=== PATIENT | male | born 1995 | race Caucasian/White ===

== ENCOUNTER 2025-06-24 09:36 | Outpatient (CLI) | payer OTHER, SELFPAY ==
--- OUTSIDE RECORDS SUMMARY | 2025-06-03 09:00 | XMS_ITS ---
Author Organization [facility] Address [address] [place] [address] Care Team Providers Care Dietitian Research Name Role Phone Lg Leung Primary Care Provider [phone] REASON FOR VISIT labs Social History Sex Assigned At : Social History Observation Description Sex Assigned At Male Encounters Encounter Location Date Provider Diagnosis [facility] [address] [place] [address] 06/03/2025 Lg Leung Plan Of Treatment Next Appt Details Provider Name:Chip Craig , 06/27/2025 11:20:00 AM, [address], [place], [address], Provider Name:Lg alva, 06/28/2025 08:40:00 AM, [address], [place], [address], Progress Notes * Darryl ROMANO RDOB:1995 ([age] yo M)Acc No.[id number]:06/03/2025 UNLOCKED PROGRESS NOTE Patient: Darryl KAT Provider: Ameena Leung DNP, PMHNP-BC :1995 A ge:30 Y S ex:Male Date:06/03/2025 Address:[address] [place], [place] [id number] Structured Data:Is there a n quang you would prefer we call you? (Nombre que prefmayela usar) : No Subjective: * Chief Complaints: * 1 . Labs. * Medical History: Objective: * Vitals: Assessment: Plan: * Treatment: * * Electronic signature of Lance Leung APRN, [id number] on 06/24/2025 at 09:45 AM SENIOR CREDIT ANALYST Sign off status: Pending * Provider: Ameena Leung DNP, PMHNP- Date: Generated for [place] braden/Hilary/Mellissasmitting on: 08/24/2024 09:45 AM SENIOR CREDIT ANALYST
--- OUTSIDE RECORDS SUMMARY | 2025-06-21 03:40 | XMS_ITS ---
Author Organization [facility] Address [address] [place] [address] Care Team Providers Care Military Personnel Specialist Name Role Phone Leung Lg Primary Care Provider Carito Johnson Unavailable [phone] REASON FOR VISIT CRU aT Social History Tobacco Use: Social History Observation Description Date Details (start date - stop date) Never Smoker NA - NA Sex Assigned At : Social History Observation Description Sex Assigned At Male PRAPARE Question Answer Notes Date Completed/Updated: 06/21/2025 What is your current housing situation? I have h ousing Are you worried about losing your housing? Yes What is the highest level of school that you have finished? 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 Check all that apply Food Has lack of transportation k ept you from medical appointments, meetings, work or from getting things needed for daily living? Yes, it has kept me from medical appointments or from getting my medications,Yes, it has kept me from non-medical meetings, appointments, work, or getting things needed for daily living How often do you see or talk to people that you care about and feel close to? (For example: talking to friends on the phone, visiting friends or family, going to mormonism or club meetings) 3 to 5 times a week How stressed are you? Stress is when someone feels tense, nervous, anxious, or can\t sleep at night because their mind is troubled Quite a bit In the past year have you sp ent more than 2 nights in a row in a group home, fdc, longterm center, or juvenile correctional facility? No Are you a refugee? I choose not to answer this q uestion What country are you from? I choose not to answe r this question Do you feel physically and e motionally safe where you currently live? Yes In the past year, have you b een afraid of your partner or ex-partner? No PRAPARE Score: 8 Enabling Services Provided? Yes Please specify Case Management Assessment First Visit Tobacco Control (Standard) Question Answer Notes Tobacco use: Nonsmoker Additional Findings: Tobacco non-user Ex-very he glo cigarette smoker (40+/day) Problems Problem Type SNOMED Code ICD Code Onset Dates Problem Status W/U Status Risk Notes Problem Mental health problem (201453397) Mental health problem (F48.9) Active confirmed Encounters Encounter Location Date Provider Diagnosis [facility] [address] [place] [address] 06/21/2025 Carito Johnson Over weight E66.3 and Mental health problem F48.9 Assessments Encounter Date Diagnosis (ICD Code) Assessment Notes Treatment Notes Treatment Clinical Notes Section Notes 06/21/2025 Over weight (ICD-10 - E66.3) 06/21/2025 Mental health problem (ICD-10 - F48.9) 06/21/2025 Other Clinician met w ith client to assess needs for residential services. Clinician gathered information regarding historical presentation of mental health and substance use symptoms including withdrawal, HIV Risk assessment, psychiatric hospitalization history and presenting concern. Clinician conducted PHQ9 and CSSRS assessments as well as social drivers of health screening for the purposes of identifying additional service needs. Plan Of Treatment Treatment Notes Assessment Notes Other Clinician met with clari de anda to assess needs for residential services. Clinician gathered information regarding historical presentation of mental health and substance use symptoms including withdrawal, HIV Risk assessment, psychiatric hospitalization history and presenting concern. Clinician conducted PHQ9 and CSSRS assessments as well as social drivers of health screening for the purposes of identifying additional service needs. Next Appt Details Follow Up: prn, Reason: Provider Name:Chip Craig , 06/27/2025 11:20:00 AM, [address], [place], [address], Provider Name:Lg Marsh , 06/28/2025 08:40:00 AM, [address] [place] [address], [place], [address], Progress Notes * Sony ROMANO RDOB:1995 ([age] yo M)Acc No.[id number]:06/21/2025 UNLOCKED PROGRESS NOTE Patient: Sony KAT Provider: Neisha Johnson :1995 A ge:30 Y S ex:Male Date:06/21/2025 Address:[facility] [address] [facility] Pcp:Lg Leung Structured Data:Is there a n quang you would prefer we call you? (Nombre que prefiere usar) : No Subjective: * Chief Complaints: * 1 . CRU aT. * HPI: P sychiatric Assessment - Current Symptoms: Primary concern today A dmitting today for MH Stabilization program. O [place] of Mental Health Symptoms C neetu reported he experiences depression and anxiety - increased symptoms of anxiety causes nausea in the morning, increase in depressive symptoms as well . H istory of Psychiatric Hospitalizations Clari de anda reported he has been hospitalized for mental health concerns twice, with the most recent being a few years ago. H istory of Psychiatric and Behavioral Health Treatment C neetu reported he does take medication and meet with a therapist for mental health services. S ubstance Use: Current Use Patterns C neetu reported he will smoke marajuana most days . P rimary Substance Used M arajuana. H istory of substance use C neetu reported he has been smoking marajuana since about age 20. H x of Withdrawal C neetu reported he sometimes experiences increase irritability as a symptom of withdrawal. A ssessment of Social Determinants of Health::: Has A PRAPARE Been Completed In The Past Year? H as a PRAPARE Been Completed In The Past Year? Y es, W as It Completed Today Using Alector? Y es.? a TBC For Substance Use Services: Who Is Your Primary Care Provider? D o You Have A Primary Care Provider? Y es [facility] . D o You Have A Psychiatric Provider? D o You Have A Psychiatric Provider? Y antonio Leung at [facility]. D o You Have Any Other Professional Supports? D o You Have Any Other Professional Supports Y antonio Bolanos through [facility] for therapy services. C onsent Forms Completed C onsent Forms N one Needed at this time. D epression Screening: PHQ-9 L ittle interest or pleasure in doing things M ore than half the days, F eeling down, depressed, or hopeless N early every day, T rouble falling or staying asleep, or sleeping too much M ore than half the days, F eeling tired or having little energy M ore than half the days, P oor appetite or overeating N early every day, F eeling bad about yourself or that you are a failure, or have let yourself or your family down N early every day, T rouble concentrating on things, such as reading the newspaper or watching television N early every day, M oving or speaking so slowly that other people could have noticed; or the opposite, being so fidgety or restless that you have been moving around a lot more than usual S everal days, T houghts that you would be better off or of hurting yourself in some way M ore than half the days (Consider Suicide Assessment Risk), T otal Score?21, I nterpretation S evere Depression. I ntervention D epression Screening Findings P ositive, F ollow-Up for Depression P mikayla is admitted to a [facility] residential unit where their mental health is monitored - unit nursing staff have access to this encounter note. S creening: [place] Suicide Severity Rating Scale (LF) D o you want to initiate with S creener form, 1 . Wish to be : Have you wished you were or wished you could go to sleep and not wake up? N o, 2 . Suicidal Thoughts: Have you actually had any thoughts of killing yourself? N o, 6 . Suicide Behavior Question: Have you ever done anything,started to do anything, or prepared to end your life? N o, I nterpretation: L ow Risk. * Medical History: * Social History: S ocial Determinants: P ANA Johns ate Completed/Updated: 08/21/2024, W hat is your current housing situation? I have housing, A re you worried about losing your housing? Y es, W hat is the highest level of school that you have finished? H igh school diploma or GED, W hat is your current work situation? F ull time work, I n the past year, have you or any family members you live with been unable to get any of the following when it was really needed? Check all that apply F ood, H as lack of transportation kept you from medical appointments, meetings, work or from getting things needed for daily living? Y es, it has kept me from medical appointments or from getting my medications,Yes, it has kept me from non-medical meetings, appointments, work, or getting things needed for daily living, H ow often do you see or talk to people that you care about and feel close to? (For example: talking to friends on the phone, visiting friends or family, going to mormonism or club meetings) 3 to 5 times a week, H ow stressed are you? Stress is when someone feels tense, nervous, anxious, or can\t sleep at night because their mind is troubled Q uite a bit, I n the past year have you spent more than 2 nights in a row in a group home, fdc, longterm center, or juvenile correctional facility? N o, A re you a refugee? I choose not to answer this question, W hat country are you from? I choose not to answer this question, D o you feel physically and emotionally safe where you currently live? Y es, I n the past year, have you been afraid of your partner or ex-partner? N o, P RAPARE Score: 8 , E nabling Services Provided? Y es, P leryan specify C ase Management Assessment First Visit.? T obacco Use: T obacco Control (Standard) T obacco use: N onsmoker, A dditional Findings: Tobacco non-user E x-very heavy cigarette smoker (40+/day). Objective: * Vitals: * Examination: M ental Status Exam: ATTENTION AND CONCENTRATION N o deficits. APPEARANCE A ppropriate. ATTITUDE AND BEHAVIOR C ooperative. EYE CONTACT G ood. AFFECT C ongruent with reported mood. MOOD E uthymic. INSIGHT F air. JUDGMENT G ood. Assessment: * Assessment: 1. O kinsey weight - E66.3 2 . M ental health problem - F48.9 Plan: * Treatment: * Procedure Codes: 9 0791 PSYCH DIAGNOSTIC EVALUATION, Modifiers: AJ , 3008F BODY MASS INDEX DOCD, CHS08 [facility] Service * Preventive Medicine: Counseling: C are goal follow-up plan: B IA management provided Y antonio, Jj lebron Normal BMI Follow-up L carlie education regarding diet. * Follow Up: p rn * * Electronic signature of Jamir Johnson on 06/24/2025 at 09:45 AM LITHOPONE CHARGER Sign off status: Pending * Provider: Neisha Johnson Date: 08/21/2024 Generated for [place] braden/Hilary/Arcadio on: 08/24/2024 09:45 AM LITHOPONE CHARGER History and Physical Notes * HPI (History of Present Illness) Category Sub-Category Detail Notes Category Not es Depression Screening PHQ-9 Little inte rest or pleasure in doing things: More than half the days Feeling down, depressed, or hopeless: Ne adam every day Trouble falling or staying a sleep, or sleeping too much: More than half the days Feeling tired or having little energy: M ore than half the days Poor appetite or overeating: Nearly ever y day Feeling bad about yourself o r that you are a failure, or have let yourself or your family down: Nearly every day Trouble concentrating on thi ngs, such as reading the newspaper or watching television: Nearly every day Moving or speaking so slowly that other people could have noticed; or the opposite, being so fidgety or restless that you have been moving around a lot more than usual: Several days Thoughts that you would be b jazlyn off or of hurting yourself in some way: More than half the days (Consider Suicide Assessment Risk) Total Score: 21 Interpretation: Severe Depression Intervention Depression Screening Findings: P ositive Follow-Up for Depression: Yariel arambula is admitted to a [facility] unit where their mental health is monitored - unit nursing staff have access to this encounter note Psychiatric Assessment - Current Symptoms Primary concern today Admitting today for MH Stabilization program Overview of Mental Health Symptoms Clien t reported he experiences depression and anxiety - increased symptoms of anxiety causes nausea in the morning, increase in depressive symptoms as well History of Psychiatric Hospitalizations Client reported he has been hospitalized for mental health concerns twice, with the most recent being a few years ago History of Psychiatric and B ehavioral Health Treatment Client reported he does take medication and meet with a therapist for mental health services Substance Use History of substance use Client reported he has been smoking marajuana since about age 20 Hx of Withdrawal Client reported he s ometimes experiences increase irritability as a symptom of withdrawal Primary Substance Used Marajuana Current Use Patterns Client reported he will smoke marajuana most days Screening [place] Suicide Sev erity Rating Scale (LF) Do you want to initiate with: Screener form 1. Wish to be : Have you wished you were or wished you could go to sleep and not wake up?: No 2. Suicidal Thoughts: Have you actually had any thoughts of killing yourself?: No 6. Suicide Behavior Question: Have you ever done anything,started to do anything, or prepared to end your life?: No Interpretation:: Low Risk Assessment of Social Determinants of Health:: Has A PRAPARE Been Completed In The Past Year? Has a PRAPARE Been Completed In The Past Year?: Yes Was It Completed Today Using SmartForm?: Yes [facility] Who Is Your Primary Care Provider? Do You Have A Primary Care Provider?: Yes Dr. Craig at [facility] Date of last physical exam: Do You Have A Psychiatric Provider? Do You Have A Psychiatric Provider?: Yes Lg Leung at [facility] Do You Have Any Other Professional Supports? Do You Have Any Other Professional Supports: Yes Luis Miguel strauss [facility] for therapy services Consent Forms Completed Consent Forms: N one Needed at this time Examination Category Sub-Category Detail Notes Category Not es Mental Status Exam ATTENTION AND CONCENTRATION No defi cits APPEARANCE Appropriate ATTITUDE AND BEHAVIOR Cooperative EYE CONTACT Good AFFECT Congruent with repor eneida mood MOOD Euthymic INSIGHT Fair JUDGMENT Good
--- NOTE | ~2025-06-24 | XR_ITS ---
EXAMINATION: [id number], 06/24/2025 9:45 FISH BAIT PICKER HISTORY: KNEE PAIN, RIGHT WT BEARING WORSENS DISCOMFORT COMPARISON: No comparisons available. Findings: No acute fracture or malalignment. No significant degenerative changes. Soft tissues unremarkable. Impression: No acute fracture or malalignment. Reviewed, dictated and finalized at location P. BAIT PICKER Impression: No acute fracture or malalignment.
--- OUTSIDE RECORDS SUMMARY | 2025-06-24 09:46 | XMS_ITS | Patient Health Record ---
Author Organization [facility] Address [address] [place] [address] Care Team Providers Care Technical Support 1 Software Engineer Name Role Phone Lg Leung Primary Care Provider [phone] Chip Craig Unavailable [phone] Grady Villanueva Unavailable [phone] Carito Johnson Unavailable [phone] Allergies No Known Allergies Results Component Value Reference Range Notes Breathalyzer Reviewed date:06/21/2025 03:30:30 PM Interpretation: Performing Lab: Notes/Report: VARINDER 0.000 QuantiFERON-TB Gold Plus (11 0848) (Not yet reviewed by provider) Interpretation: Performing Lab:[facility], [address] [place] [address], Phone - [phone], Director - Natalie Notes/Report: QuantiFERON Incubation Incubation performed. QuantiFERON-TB Gold Plus Negative Negative No response to M tuberculosis antigens detected. Infection with M tuberculosis is unlikely, but high risk individuals should be considered for additional testing (ATS/IDSA/CDC Clinical Practice Guidelines, 2017). The reference range is an Antigen minus Nil result of <0.35 IU/mL. Chemiluminescence immunoassay methodology QuantiFERON Criteria QuantiFERON-TB Gold Plus is a qualitative indirect test for M tuberculosis infection (including disease) and is intended for use in conjunction with risk assessment, radiography, and other medical and diagnostic evaluations. The QuantiFERON-TB Gold Plus result is determined by subtracting the Nil value from either TB antigen (Ag) value. The Mitogen tube serves as a control for the test. QuantiFERON TB1 Ag Value 0.03 QuantiFERON TB2 Ag Value 0.02 QuantiFERON Nil Value 0.02 QuantiFERON Mitogen Value >10.00 14 Panel Urine Drug Screen Reviewed date:06/21/2025 03:30:30 PM Interpretation: Performing Lab: Notes/Report: THC pos RAYRAY neg MOP (OPI) neg AMP neg MET neg BAR neg BZO pos MDMA neg MTD neg OXY neg PCP neg BUP neg TCA neg FTY neg Chlamydia trachomatis,Neisse jorge gonorrhoeae, and Trichomonas vaginalis, TEMO (264590) (Not yet reviewed by provider) Interpretation: Performing Lab:[facility], [address] [place] [address], Phone - [phone], Director - Natalie Notes/Report: Chlamydia by TEMO Negative Negative Gonococcus by TEMO Negative Negative Trich vag by TEMO Negative Negative Rapid Plasma Reagin (RPR) Te st With Reflex to Quantitative RPR and Confirmatory Treponema pallidum Antibodies (Not yet reviewed by provider) Interpretation: Performing Lab:[address], Phone - [phone], Director - Natalie Notes/Report: RPR Non Reactive Non Reactive HIV Screen *HIV 1, 2 Ab, p24 Ag (122452) (Not yet reviewed by provider) Interpretation: Performing Lab:[address], Phone - [phone], Director - Natalie Notes/Report: HIV Ab/p24 Ag Screen Non Reactive Non Reactive HIV-1/HIV-2 antibodies and HIV-1 p24 antigen were NOT detected. There is no laboratory evidence of HIV infection. HIV Negative [place] (Eskalith(R)), Serum Reviewed date:06/15/2025 01:43:41 PM Interpretation: Performing Lab:[facility], [address] [place] [address], Phone - [phone], Director - Nuvia Notes/Report: [place] (Eskalith(R)), Serum 0.5 0.5-1.2 mmol/L A concentration of 0.5-0.8 mmol/L is advised for long-term use; concentrations of up to 1.2 mmol/L may be necessary during acute treatment. Detection Limit = 0.1 <0.1 indicates None Detected Vitamin B12 and Folate Reviewed date:06/15/2025 01:43:41 PM Interpretation: Performing Lab:[address], Phone - [phone], Director - [facility] Notes/Report: Vitamin B12 581 319-8240 pg/mL Folate (Folic Acid), Serum 3.2 >3.0 ng/mL A serum folate concentration of less than 3.1 ng/mL is considered to represent clinical deficiency. Iron and TIBC* Reviewed date:06/15/2025 01:43:41 PM Interpretation: Performing Lab:[address], Phone - [phone], Director - [facility] Notes/Report: Iron Bind.Cap.(TIBC) 302 250-450 ug/dL UIBC 223 111-343 ug/dL Iron 79 38-169 ug/dL Iron Saturation 26 15-55 % TSH Rfx on Abnormal to Free T4 Reviewed date:06/15/2025 01:43:41 PM Interpretation: Performing Lab:[address], Phone - [phone], Director - [facility] Notes/Report: TSH 5.670 0.450-4.500 uIU/mL T4,Free (Direct) 0.89 0.82-1.77 ng/dL Hepatitis C Virus Antibody w /Rflx to Quantitative Real-time PCR ([id number]) Reviewed date:06/15/2025 01:43:41 PM Interpretation: Performing Lab:[address], Phone - [phone], Director - [facility] Notes/Report: HCV Ab Non Reactive Non Reactive Interpretation: Not infected with HCV unless early or acute infection is suspected (which may be delayed in an immunocompromised individual), or other evidence exists to indicate HCV infection. Hepatitis B Surface Antigen (HBsAg Screen) Reviewed date:06/15/2025 01:43:41 PM Interpretation: Performing Lab:[address], Phone - [phone], [facility] - [facility] Notes/Report: HBsAg Screen Negative Negative Rapid Plasma Reagin (RPR) Te st With Reflex to Quantitative RPR and Confirmatory Treponema pallidum Antibodies Reviewed date:06/15/2025 01:43:41 PM Interpretation: Performing Lab:[facility] [address] [place] [address], Phone - [phone], Director - [facility] Notes/Report: RPR Non Reactive Non Reactive HIV Screen *HIV 1, 2 Ab, p24 Ag (200212) Reviewed date:06/15/2025 01:43:41 PM Interpretation: Performing Lab:[facility] [address] [place] [address], Phone - [phone], Director - [facility] Notes/Report: HIV Ab/p24 Ag Screen Non Reactive Non Reactive HIV Negative HIV-1/HIV-2 antibodies and HIV-1 p24 antigen were NOT detected. There is no laboratory evidence of HIV infection. Lipid Panel* Reviewed date:06/15/2025 01:43:41 PM Interpretation: Performing Lab:[facility] [address] [place] [address], Phone - [phone], [facility] Notes/Report: Cholesterol, Total 185 100-199 mg/dL Triglycerides 78 0-149 mg/dL HDL Cholesterol 55 >39 mg/dL VLDL Cholesterol Ry 14 5-40 mg/dL LDL Chol Calc (NIH) 116 0-99 mg/dL Hemoglobin A1c* Reviewed date:06/15/2025 01:43:41 PM Interpretation: Performing Lab:[facility] [address] [place] [address], Phone - [phone], Director - [facility] Notes/Report: Hemoglobin A1c 5.2 4.8-5.6 % . Prediabetes: 5.7 - 6.4 Diabetes: >6.4 Glycemic control for adults with diabetes: <7.0 Chlamydia/Gonococcus/Mycopla sma genitalium, TEMO, Urine Reviewed date:06/15/2025 01:43:41 PM Interpretation: Performing Lab:[facility] [address] [place] [address], Phone - [phone], [facility] Notes/Report: Mycoplasma genitalium TEMO Negative Negative Chlamydia trachomatis, TEMO Negative Negative Neisseria gonorrhoeae, TEMO Negative Negative UA/M w/rflx Culture, Routine Reviewed date:06/15/2025 01:43:41 PM Interpretation: Performing Lab:[facility] [address] [place] [address], Phone - [phone], Director - [facility] Notes/Report: Specific [place] 1.020 1.005-1.030 pH 7.0 5.0-7.5 Urine-Color Yellow Yellow Appearance Clear Clear WBC Esterase Negative Negative Protein Negative Negative/Trace Glucose Negative Negative Ketones Negative Negative Occult Blood Negative Negative Bilirubin Negative Negative Urobilinogen,Semi-Qn 0.2 0.2-1.0 mg/dL Nitrite, Urine Negative Negative Microscopic Examination Micr oscopic follows if indicated. Microscopic Examination See below: Micr oscopic was indicated and was performed. Urinalysis Reflex This speci men will not reflex to a Urine Culture. WBC None seen 0 - 5 /hpf RBC 0-2 0 - 2 /hpf Epithelial Cells (non renal) None seen 0 - 10 /hpf Casts None seen None seen /lpf Bacteria None seen None seen/Few CMP 14 Comprehensive Metabol ic Panel* Reviewed date:06/15/2025 01:43:41 PM Interpretation: Performing Lab:[facility], [address] [facility]3], Phone - [phone], Director - Nuvia Notes/Report: Glucose 85 70-99 mg/dL BUN 12 6-20 mg/dL Creatinine 1.04 0.76-1.27 mg/dL eGFR 98 >59 mL/min/1.73 BUN/Creatinine Ratio 12 9-20 Sodium 142 134-144 mmol/L Potassium 4.1 3.5-5.2 mmol/L Chloride 105 96-106 mmol/L Carbon Dioxide, Total 23 20-29 mmol/L Calcium 9.1 8.7-10.2 mg/dL Protein, Total 6.4 6.0-8.5 g/dL Albumin 4.2 4.1-5.1 g/dL Globulin, Total 2.2 1.5-4.5 g/dL Bilirubin, Total 0.2 0.0-1.2 mg/dL Alkaline Phosphatase 81 47-123 IU/L AST (SGOT) 53 0-40 IU/L ALT (SGPT) 61 0-44 IU/L CBC With Differential/Platel et* Reviewed date:06/15/2025 01:43:41 PM Interpretation: Performing Lab:[facility], [address] [facility]3], Phone - [phone], Director - Nuvia Notes/Report: WBC 9.5 3.4-10.8 x10E3/uL RBC 4.58 4.14-5.80 x10E6/uL Hemoglobin 13.6 13.0-17.7 g/dL Hematocrit 41.5 37.5-51.0 % MCV 91 79-97 fL MCH 29.7 26.6-33.0 pg MCHC 32.8 31.5-35.7 g/dL RDW 12.8 11.6-15.4 % Platelets 248 150-450 x10E3/uL Neutrophils 59 Not Estab. % Lymphs 25 Not Estab. % Monocytes 8 Not Estab. % Eos 6 Not Estab. % Basos 1 Not Estab. % Neutrophils (Absolute) 5.7 1.4-7.0 x10E3/uL Lymphs (Absolute) 2.3 0.7-3.1 x10E3/uL Monocytes(Absolute) 0.8 0.1-0.9 x10E3/uL Eos (Absolute) 0.5 0.0-0.4 x10E3/uL Baso (Absolute) 0.1 0.0-0.2 x10E3/uL Immature Granulocytes 1 Not Estab. % Immature Grans (Abs) 0.1 0.0-0.1 x10E3/uL Reason For Referral Reason Evaluate for aminata fundoplication, [facility] preferred Diagnosis 1 Esophagitis (K20.90) Referral Organization [facility] Referring Provider First Name Chip Referring Provider Last Name Kiara Referring Provider Speciality Internal M edicine Referred Provider Specialty General Surg nuvia Referral Priority Routine Medications Medication SIG (Take, Route, Frequency, Duration) Notes Start Date End Date Status hydrOXYzine Pamoate 25 MG 1-2 capsules Orally every 4 hours as needed for anxiety, agitation, or inability to sleep. Do not give within 4 hours of diphenhydramine.; Duration: 30 days 06/21/2025 Active Pantoprazole Sodium 40 MG 1 tablet 1/2 to 1 hour before morning meal Orally twice a day 06/08/2025 Active Naproxen 375 MG 1 tablet with food or milk as needed Orally every 12 hrs; Duration: 30 days 06/24/2025 Active Melatonin 5 MG 1 tablet at bedtime as needed Orally Once a day; Duration: 30 days 06/21/2025 Active Losartan Potassium-HCTZ 100-25 MG 1 tablet Orally Once a day Active Caplyta 42 MG 1 capsule Orally Once a day 03/01/2025 Active Chlorhexidine Gluconate 0.12 % 15 mL swish for 30 seconds, then spit. Do not swallow. Mouth/Throat Twice a day; Duration: 30 day(s) 06/21/2025 Active Acetaminophen 500 MG two tablets as needed for pain (maximum of 6 tablets in 24 hours) Orally every 6 hrs 06/08/2025 Active Venlafaxine HCl ER 75 MG 1 capsule with food Orally Once a day 03/24/2025 Active buPROPion HCl ER (XL) 150 MG 1 tablet in the morning Oral Once a day Active Venlafaxine HCl ER 37.5 MG 1 capsule with food (take with 75 mg capsule for 112.5 mg daily total) Orally Once a day 05/23/2025 Active Benztropine Mesylate 0.5 MG 1 tablet at bedtime Orally Once a day; Duration: 30 days 05/23/2025 Active busPIRone HCl 15 MG 1 tablet Orally 3 times a day Active Multi Vitamin - 1 tablet Orally Once a day; Duration: 30 days 06/21/2025 Active Amoxicillin 500 MG 1 capsule Orally every 8 hrs 06/08/2025 Active diazePAM 5 MG 1/2 - 1 tablet as needed for panic attacks or severe anxiety Orally Up to twice a day; Duration: 14 days 05/30/2025 Active [place] Carbonate ER 300 MG 2 tablets at bedtime Orally Once a day Increasing from 300 mg to 600 mg nightly. Thanks. 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 Stress is when someone feels tense, nervous, anxious, or can\t sleep at night because their mind is troubled Quite a bit In the past year have you sp ent more than 2 nights in a row in a custodial, residential, nursing home center, or juvenile correctional facility? No Are [...] Problem Status W/U Status Risk Notes Problem Hypertension (83262066) Hypertension (I10) Active confirmed Problem Bipolar affective disorder (93479396) Bipolar affective disorder (F31.9) Active confirmed Problem Generalized anxiety disorder (03379576) VILMA (generalized anxiety disorder) (F41.1) Active confirmed Problem Overweight (914234999) Over weight (E66.3) Active confirmed Problem Mental health problem (986680656) Mental health problem (F48.9) Active confirmed Problem Physical examination, complete (14495584) Adult general medical examination (Z00.00) Active confirmed Problem Extrapyramidal movements (695386261) 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 Vital Signs Heart Rate 98 /min 06/24/2025 Temperature 97.9 degrees Fahrenheit 06/24/2025 Respiratory Rate 20 /min 06/24/2025 Oximetry 100 % 06/24/2025 Blood pressure diastolic 82 mm Hg 06/24/2025 Height 73 in 06/24/2025 Blood pressure systolic 128 mm Hg 06/24/2025 Weight 288.2 lbs 06/24/2025 BMI 38.02 kg/m2 06/24/2025 Encounters Encounter Location Date Provider Diagnosis [address] [place] [address] 05/23/2025 Lg Leung Bipolar affective disorder F31.9 ; VILMA (generalized anxiety disorder) F41.1 ; Extrapyramidal and movement disorder G25.9 ; Medication monitoring encounter Z51.81 and High risk heterosexual behavior Z72.51 [facility] [address] [place] [address] 06/21/2025 Carito Santanaan Over weight E66.3 an d Mental health problem F48.9 [facility] [place] [address] 06/24/2025 Grady Villanueva Over weight E66.3 an d Knee pain, right M25.[address] [place] [address] 03/01/2025 Lg Leung Bipolar affective disorder F31.9 and VILMA (generalized anxiety disorder) F41.[address] [place] [address] 03/24/2025 Lg Leung Bipolar affective disorder F31.9 ; VILMA (generalized anxiety disorder) F41.1 and Over weight E66.[address] [place] [address] 04/26/2025 Lg Leung Bipolar affective disorder F31.9 and VILMA (generalized anxiety disorder) F41.[address] [place] [address] 06/08/2025 Chip Craig Esophagitis K20.90 ; Urinary frequency R35.0 ; Hypertension I10 ; Over weight E66.3 ; Screening for diabetes mellitus Z13.1 ; Periodontal disease K05.6 ; Dental infection K04.7 ; Lipid screening Z13.220 ; Exposure to potential infection Z20.9 ; Fatigue R53.83 and Bipolar affective disorder F31.9 [facility] [address] [place] [address] 06/21/2025 Grady Villanueva Adult general medica l examination Z00.00 ; Hypertension I10 ; Over weight E66.3 ; Poor dental hygiene Z91.89 ; Unprotected sex Z72.51 and Knee pain, right M25.561 [facility] [address] [place] [address] 03/30/2025 Lg Leung Bipolar affective disorder F31.[address] [place] [address] 05/25/2025 Lg Leung [address] [place] [address] 05/30/2025 Lg Leung [address] [place] [address] 05/30/2025 Lg Leung Bipolar affective disorder F31.9 and VILMA (generalized anxiety disorder) F41.1 Assessments Encounter Date Diagnosis (ICD Code) Assessment Notes Treatment Notes Treatment Clinical Notes Section Notes 03/01/2025 Bipolar affective disorder (ICD-10 - F31.9) Client with long standing bipolar disorder and comorbid severe anxiety disorder. Has medical issues that are also playing a role in mental health (ED, peptic ulcer disease, migraines). Unclear if mental health is cause of medical issues or vice versa. Client states he has never had an effective treatment plan. Will start by weaning activating agent in half as amitriptyline is likely causing ED and weight gain and client is still having depression and insomnia (limited benefits). Client is agreeable to trial of Capltya in place of Vraylar for mood stabilization (did not tolerate dose increase in Vraylar in past). Caplyta choosen to limit metabolic risk burden. 03/01/2025 VILMA (generalized anxiety disorder) (ICD-10 - F41.1) Client with long standing bipolar disorder and comorbid severe anxiety disorder. Has medical issues that are also playing a role in mental health (ED, peptic ulcer disease, migraines). Unclear if mental health is cause of medical issues or vice versa. Client states he has never had an effective treatment plan. Will start by weaning activating agent in half as amitriptyline is likely causing ED and weight gain and client is still having depression and insomnia (limited benefits). Client is agreeable to trial of Capltya in place of Vraylar for mood stabilization (did not tolerate dose increase in Vraylar in past). Caplyta choosen to limit metabolic risk burden. 03/24/2025 Bipolar affective disorder (ICD-10 - F31.9) Client with long standing bipolar disorder and comorbid severe anxiety disorder. Has medical issues that are also playing a role in mental health (ED, peptic ulcer disease, migraines). Unclear if mental health is cause of medical issues or vice versa. Change to Caplyta from last appt has helped improve sleep and depression. Client is agreeable to weaning off amitriptyline completely and replacing with venlafaxine in the attempt for better control of anxiety, migraines with less side effect profile (hopeful ED will resolve). 03/30/2025 Bipolar affective disorder (ICD-10 - F31.9) 04/26/2025 Bipolar affective disorder (ICD-10 - F31.9) Client is agreeable to trial of low dose lithium using as augmentor for depression and to see if more stabilizing for mood. Discussed how to use lower dose amitriptyline to taper off very slowly due to client's intolerance due to withdrawal symptoms. 04/26/2025 VILMA (generalized anxiety disorder) (ICD-10 - F41.1) Client is agreeable to trial of low dose lithium using as augmentor for depression and to see if more stabilizing for mood. Discussed how to use lower dose amitriptyline to taper off very slowly due to client's intolerance due to withdrawal symptoms. 05/30/2025 Bipolar affective disorder (ICD-10 - F31.9) 05/30/2025 VILMA (generalized anxiety disorder) (ICD-10 - F41.1) 05/23/2025 Bipolar affective disorder (ICD-10 - F31.9) Client requests full lab work as has not had comprehensive lab work in a long time and is overdue. Needs lithium level and related labs. Is interested in STD testing as well. 05/23/2025 VILMA (generalized anxiety disorder) (ICD-10 - F41.1) Client requests full lab work as has not had comprehensive lab work in a long time and is overdue. Needs lithium level and related labs. Is interested in STD testing as well. 06/08/2025 Urinary frequency (ICD-10 - R35.0) Discussed avoiding acid, spicey, carbonated, coffee, caffeine, alcohol foods and drinks 06/08/2025 Esophagitis (ICD-10 - K20.90) Discussed antireflux diet, wt loss, no lying down for 3 hours after eating 06/21/2025 Hypertension (ICD-10 - I10) 06/21/2025 Adult general medical examination (ICD-10 - Z00.00) Admit to the Mental Health/Crisis Residential Unit and initiate standing/protocol orders: The following PRN medications may be self-administered by patients under the supervision of approved staff or administered by nursing staff: Ibuprofen 200mg, 2-4 tablets by mouth (with food) every 6 hours as needed for pain (unless on lithium). (NOTE: Ibuprofen and acetaminophen may be given together, but alternating is recommended for continuous pain relief. Guaifenesin 400 mg, 1 tablet by mouth every four hours as needed for cough and chest congestion (take with large glass of water). Loratadine 10 mg, 1 tablet by mouth daily as needed for allergies, watery itchy eyes, or sinus drainage. Throat Lozenges, up to 4 tablets by mouth every three to four hours as needed for sore throat. Antacid tablets, 1-2 tablets by mouth every one to two hours as needed for indigestion or heart burn. If the client prefers liquid, could use: Liquid Antacid : 1 ounce by mouth up to four times daily as needed for indigestion or heartburn Omeprazole 20mg, 1 capsule by mouth once daily for 14 days for frequent heartburn (frequent heartburn is more than 2 episodes per week). Do not exceed 14 days. Do not give to client already taking a proton-pump inhibitor: esomeprazole (Nexium), lansoprazole (Prevacid), pantoprazole (Protonix), rabeprazole (Aciphex), dexlansoprazole (Dexilant) Zofran ODT disintegrating (under the tongue) 4 mg, 1-2 tablets every 8 hours as needed for nausea/vomiting. Milk of Magnesia (MOM): 1 ounce (30 milliliters) by mouth every day as needed for constipation. OR Miralax: Stir and fully dissolve 17 grams (1 packet or 1 capful to measured line) in any 4 to 8 ounces of beverage then drink once daily for constipation. Do not use for more than 7 days. OR Docusate 100 mg, 1 capsule twice daily as needed for constipation Hydrocortisone 1% Cream, apply topically (to the skin) to the affected area up to three times daily as needed for itching or inflammation (avoid eyes and genitals). 2% Antifungal Cream, apply topically (to the skin) as directed as needed to affected areas for athlete's foot or jock itch. Triple Antibiotic Ointment, apply topically (to the skin) up to three times daily as needed for minor cuts and scrapes. Carmex or Chapstick, apply topically (to the skin) as needed for chapped lips and skin. Orajel, apply to affected areas as needed for mouth or tooth pain. Lubricating Eye Drops, instill 1-2 drops to the affected eye(s) as needed for dry/irritated eye(s). Hemorrhoid medications, apply to affected area according to directions as needed for hemorrhoid discomfort and itch. Nix (Permethrin 1%) cream 2 ounces, apply topically (to the skin) as directed as needed for head lice. Sunscreen 30 SPF, Apply to exposed skin prior to exposure to sun. The following PRN medications must be approved by nursing staff before self-administrati on by patients: Diphenhydramine 25 mg, 2 tablets by mouth every 4 hours as needed for allergic reaction or itchy rash. Caution: Do not use hydroxyzine within 4 hours of diphenhydramine and vice versa. Loperamide 2 mg capsules, may give two capsules by mouth for the initial dose, followed by one capsule up to 3 times a day as needed for diarrhea. Acetaminophen 500 mg, 1 - 2 tablets by mouth every six hours as needed for pain. (NOTE: Ibuprofen and acetaminophen may be given together, but alternating is recommended for continuous pain relief). Oxygen-May administer oxygen 2L/min via nasal cannula if O2 saturation is less than 92%, AND client complains of shortness of breath. Target O2 saturation is 94-98%. Caution: Remember too much oxygen can be detrimental to a client with COPD. Oxygen is a drug and should be delivered by trained staff only. Nurses may remove superficial splinters and sutures from skin lacerations. May apply gauze or bandages to any weeping wounds. Contact nursing if there is pus, a foul odor, increased pain/redness/swel ling, or if soaking through bandages. 06/21/2025 Over weight (ICD-10 - E66.3) 06/24/2025 Over weight (ICD-10 - E66.3) 06/24/2025 Knee pain, right (ICD-10 - M25.561) Educated patient on needing x-ray before any other scans can be done for insurance purposes. 06/21/2025 Mental health problem (ICD-10 - F48.9) 05/23/2025 Extrapyramidal and movement disorder (ICD-10 - G25.9) Client requests full lab work as has not had comprehensive lab work in a long time and is overdue. Needs lithium level and related labs. Is interested in STD testing as well. 06/21/2025 Over weight (ICD-10 - E66.3) 06/08/2025 Hypertension (ICD-10 - I10) 03/24/2025 VILMA (generalized anxiety disorder) (ICD-10 - F41.1) Client with long standing bipolar disorder and comorbid severe anxiety disorder. Has medical issues that are also playing a role in mental health (ED, peptic ulcer disease, migraines). Unclear if mental health is cause of medical issues or vice versa. Change to Caplyta from last appt has helped improve sleep and depression. Client is agreeable to weaning off amitriptyline completely and replacing with venlafaxine in the attempt for better control of anxiety, migraines with less side effect profile (hopeful ED will resolve). 03/24/2025 Over weight (ICD-10 - E66.3) Client with long standing bipolar disorder and comorbid severe anxiety disorder. Has medical issues that are also playing a role in mental health (ED, peptic ulcer disease, migraines). Unclear if mental health is cause of medical issues or vice versa. Change to Caplyta from last appt has helped improve sleep and depression. Client is agreeable to weaning off amitriptyline completely and replacing with venlafaxine in the attempt for better control of anxiety, migraines with less side effect profile (hopeful ED will resolve). 05/23/2025 Medication monitoring encounter (ICD-10 - Z51.81) Client requests full lab work as has not had comprehensive lab work in a long time and is overdue. Needs lithium level and related labs. Is interested in STD testing as well. 06/08/2025 Over weight (ICD-10 - E66.3) 06/21/2025 Poor dental hygiene (ICD-10 - Z91.89) 06/21/2025 Unprotected sex (ICD-10 - Z72.51) 06/08/2025 Screening for diabetes mellitus (ICD-10 - Z13.1) 06/08/2025 Periodontal disease (ICD-10 - K05.6) 06/21/2025 Knee pain, right (ICD-10 - M25.561) 05/23/2025 High risk heterosexual behavior (ICD-10 - Z72.51) Client requests full lab work as has not had comprehensive lab work in a long time and is overdue. Needs lithium level and related labs. Is interested in STD testing as well. 06/08/2025 Dental infection (ICD-10 - K04.7) 06/08/2025 Lipid screening (ICD-10 - Z13.220) 06/08/2025 Exposure to potential infection (ICD-10 - Z20.9) 06/08/2025 Fatigue (ICD-10 - R53.83) 06/08/2025 Bipolar affective disorder (ICD-10 - F31.9) 06/21/2025 Other Clinician met with client to assess needs for residential services. Clinician gathered information regarding historical presentation of mental health and substance use symptoms including withdrawal, HIV Risk assessment, psychiatric hospitalization history and presenting concern. Clinician conducted PHQ9 and CSSRS assessments as well as social drivers of health screening for the purposes of identifying additional service needs. 03/01/2025 Other Discussed sleep hygiene and caffeine intake with encouragement to limit electronic devices an hour before bed and to limit caffeine after 3:00pm. Exercise benefits for mood and health discussed. Psychoeducation regarding psychiatric illness provided. Client was educated about risks and benefits of medication, alternatives to medication, off label uses of medication, suicidal ideation with SSRIs, self-administrati on and compliance with medication along with how to safely store medication. Verbal informed consent obtained. Client agrees to return sooner if symptoms worsen or if suicidal or homicidal ideations occur. Client has the phone number to the 24-hour crisis line at [facility]. Questions addressed. Client verbalized understanding of all information and is agreeable to treatment plan. Client with long standing bipolar disorder and comorbid severe anxiety disorder. Has medical issues that are also playing a role in mental health (ED, peptic ulcer disease, migraines). Unclear if mental health is cause of medical issues or vice versa. Client states he has never had an effective treatment plan. Will start by weaning activating agent in half as amitriptyline is likely causing ED and weight gain and client is still having depression and insomnia (limited benefits). Client is agreeable to trial of Capltya in place of Vraylar for mood stabilization (did not tolerate dose increase in Vraylar in past). Caplyta choosen to limit metabolic risk burden. 03/24/2025 Other Discussed sleep hygiene and caffeine intake with encouragement to limit electronic devices an hour before bed and to limit caffeine after 3:00pm. Exercise benefits for mood and health discussed. Psychoeducation regarding psychiatric illness provided. Client was educated about risks and benefits of medication, alternatives to medication, off label uses of medication, suicidal ideation with SSRIs, self-administrati on and compliance with medication along with how to safely store medication. Verbal informed consent obtained. Client agrees to return sooner if symptoms worsen or if suicidal or homicidal ideations occur. Client has the phone number to the 24-hour crisis line at [facility]. Questions addressed. Client verbalized understanding of all information and is agreeable to treatment plan. Client with long standing bipolar disorder and comorbid severe anxiety disorder. Has medical issues that are also playing a role in mental health (ED, peptic ulcer disease, migraines). Unclear if mental health is cause of medical issues or vice versa. Change to Caplyta from last appt has helped improve sleep and depression. Client is agreeable to weaning off amitriptyline completely and replacing with venlafaxine in the attempt for better control of anxiety, migraines with less side effect profile (hopeful ED will resolve). 04/26/2025 Other Discussed sleep hygiene and caffeine intake with encouragement to limit electronic devices an hour before bed and to limit caffeine after 3:00pm. Exercise benefits for mood and health discussed. Psychoeducation regarding psychiatric illness provided. Client was educated about risks and benefits of medication, alternatives to medication, off label uses of medication, suicidal ideation with SSRIs, self-administrati on and compliance with medication along with how to safely store medication. Verbal informed consent obtained. Client agrees to return sooner if symptoms worsen or if suicidal or homicidal ideations occur. Client has the phone number to the 24-hour crisis line at [facility]. Questions addressed. Client verbalized understanding of all information and is agreeable to treatment plan. Client is agreeable to trial of low dose lithium using as augmentor for depression and to see if more stabilizing for mood. Discussed how to use lower dose amitriptyline to taper off very slowly due to client's intolerance due to withdrawal symptoms. 06/21/2025 Other Continue treatment as recommended by [facility] staff. Encouraged patient to obtain routine medical care with patient's own primary care provider or establish as a patient at [facility] if no current primary care provider. Plan Of Treatment Future Test Test Name Order Date Xray : Knee, right 2 views 06/21/2025 HIV Screen *HIV 1, 2 Ab, p24 Ag ([id number]) 06/21/2025 Chlamydia trachomatis,Neisse jorge gonorrhoeae, and Trichomonas vaginalis, TEMO ([id number]) 06/21/2025 QuantiFERON-TB Gold Plus ([id number]) 2024 Rapid Plasma Reagin (RPR) Te st With Reflex to Quantitative RPR and Confirmatory Treponema pallidum Antibodies 06/21/2025 Next Appt Details Provider Name:Chip Craig , 06/27/2025 11:20:00 AM, [address], [place], [address], Provider Name:Lg alva, 06/28/2025 08:40:00 AM, [address], [place], [address], Insurance Providers Payer Name Payer Address Payer Phone Subscriber Number Group Number Insured Name Patient Relationship to Insured Coverage Start Date Coverage End Date [facility] [employer] [facility] Attn Claims Department [address] [place] [address] [phone] [id number] Darryl Talavera Self - patient is the insured [facility] [facility] Attn Claims Department [address] [place] [address] [phone] [id number] Day, Darryl Self - patient is the insured 5 Medical (General) History Medical History History ICD Code hypertension Surgical History Surgery Date(Month/Year) pins put in Left knee
--- OUTSIDE RECORDS SUMMARY | 2025-06-24 09:46 | XMS_ITS | Clinical Summary ---
Author Organization [facility] Address [address] [place] [address] Care Team Providers Care Waiter/Waitress Counter Name Role Phone Mireya Keene INFORMATION TECHNOLOGY ADMINISTRATOR-UNION ORGANISER Primary Care Provide r Source Comments [facility],non-owned Affiliates and Associated Physician Practices is amultiple site organization consisting of ambulatory clinics and hospital sitesin [place], [place], [place] and [place]. This disclosure is being madepursuant to the Care Everywhere program and may not contain all information available regarding this patient. Last updated 18.[facility] Allergies No known active allergies Medications * This document contains information received from the source organization and may not represent a complete record from that organization. * Be aware that medications may not be up to date on this document. Alwaysverify current medications with the patient. omeprazole (PRILOSEC) 20 MG capsuleIndicati ons:Gastroesoph ageal Reflux Disease Take 20 mg by mouth at bedtime Active losartan (COZAAR) 50 MG tabletIndicatio ns:Hypertension Take 1 (one) tablet by mouth once daily Reasons: High Blood Pressure Disorder 30 tablet 2 Active ARIPiprazole (ABILIFY) 2 MG tabletIndicatio ns:Major Depressive Disorder Take 1 (one) tablet by mouth once daily Reasons: Major Depressive Disorder 30 tablet 1 2 Active Active Problems Problem Noted Date Diagnosed Date Dysthymia 12/29/2021 Intentional overdose of olga lidia ctive serotonin reuptake inhibitor (SSRI) 12/29/2021 R/O Personality disorder 12/29/2021 Current severe episode of ma neyda depressive disorder without psychotic features, unspecified whether recurrent 12/28/2021 Family History Medical History Relation Name Comments CAD (Coronary Artery Disease) Father Hypertension Father CAD (Coronary Artery Disease) Mother Hypertension Mother Relation Name Status Comments Father Mother Social History Tobacco Use Types Packs/Day Years Used Date Smoking Tobacco: Never Smokeless Tobacco: Never Tobacco Cessation:Counseling Given: Yes Alcohol Use Standard Drinks/Week Comments Not Currently 0 (1 standard drink = 0.6 oz pur e alcohol) Pt reports no alcohol AUDIT-C Answer Date Recorded Q1: How often do you have a drink containing alcohol? Never 12/29/2021 Q2: How many drinks containi ng alcohol do you have on a typical day when you are drinking? Patient does not drink Q3: How often do you have si x or more drinks on one occasion? Never 12/29/2021 Sex and Gender Information Value Date Recorded Sex Assigned at Not on file Legal Sex Male 9:02 AM CDT Gender Identity Not on file Sexual Orientation Not on file Last Filed Vital Signs Vital Sign Reading Time Taken Comments Blood Pressure 137/93 01/01/2022 7:30 AM CDT Pulse 82 01/01/2022 7:30 AM CDT Temperature 37 C (98.6 F) 01/01/2022 7:30 AM CDT Respiratory Rate 16 01/01/2022 7:30 AM CDT Oxygen Saturation 99% 01/01/2022 7:30 AM CDT Inhaled Oxygen Concentration - - Weight 122.5 kg (270 lb) 12/29/2021 12:05 AM CDT Height 154.9 cm (5' 1) 12/29/2021 12:05 AM CDT Body Mass Index 51.02 12/29/2021 12:05 AM CDT Plan of Treatment Health Maintenance Due Date Last Done Comments HIV SCREENING 2009 HEPATITIS C SCREENING 04/06/2012 DTAP/TDAP/TD VACCINES (1 - Tdap) 2013 HEPATITIS B VACCINE (1 of 3 - 19+ 3-dose series) 2013 HPV VACCINE (1 - 3-dose SCDM series) 2021 DEPRESSION SCREENING 08/04/2024 COVID-19 VACCINE (1 - 2024-2 6 season) 2025 INFLUENZA VACCINE (#1) 2025 ZOSTER VACCINE (1 of 2) 2044 HIB VACCINE Aged Out No longer eligi ble based on patient's age to complete this topic MENINGOCOCCAL (Group B) VACC INE SHARED DECISION-MAKING Aged Out No longer eligibl e based on patient's age to complete this topic MENINGOCOCCAL GROUPS A/C/Y/W VACCINE Aged Out No longer eligible b ased on patient's age to complete this topic PNEUMOCOCCAL VACCINE Aged Out No long er eligible based on patient's age to complete this topic Insurance [place] Advance Directives * Full Code (Latest Code Status on File) Date Activated Date Inactivated Comments 12/28/2021 11:49 PM 01/01/2022 2:07 PM Care Teams Waiter/Waitress Counter Relationship Specialty Start Date End Date Mireya Keene APRN-CNP [address] [place] [address] PCP - General Nurse Practitioner 12/02/21
--- OUTSIDE RECORDS SUMMARY | 2025-06-24 09:46 | XMS_ITS | Clinical Summary ---
Author Organization [facility] Address [address] [place] [address] Phone Care Team Providers Care Room Designer Name Role Phone Provider, None Primary Care Provider Unavailabl e Allergies No known active allergies Medications Topiramate 50 MG Tablet Take 50 mg by mouth 2 times daily. Active Active Problems Problem Noted Date Diagnosed Date Suicidal behavior with attempted self-injury 02/2021 Episode of recurrent major depressive disorder 0 02/07/2021 Hx of migraine headaches 02/07/2021 Obesity (BMI 30.0-34.9) 02/07/2021 Family History Medical History Relation Name Comments High Cholesterol Father Diabetes Mother High Cholesterol Mother Relation Name Status Comments Father Alive Mother Alive Social History Tobacco Use Types Packs/Day Years Used Date Smoking Tobacco: Never Smokeless Tobacco: Never Alcohol Use Standard Drinks/Week Comments Not Currently 0 (1 standard drink = 0.6 oz pur e alcohol) Sex and Gender Information Value Date Recorded Sex Assigned at Not on file Legal Sex Male 8:40 PM CDT Gender Identity Not on file Sexual Orientation Not on file Last Filed Vital Signs Vital Sign Reading Time Taken Comments Blood Pressure 133/72 02/07/2021 1:47 PM CDT Pulse 77 02/07/2021 1:47 PM CDT Temperature 36.7 C (98.1 F) 02/07/2021 1:47 PM CDT Respiratory Rate 26 02/07/2021 1:47 PM CDT Oxygen Saturation 99% 02/07/2021 1:47 PM CDT Inhaled Oxygen Concentration - - Weight 111.8 kg (246 lb 8 oz) 02/07/2021 5:15 AM CDT Height 180.3 cm (5' 11) 02/07/2021 5:15 AM CDT Body Mass Index 34.38 02/07/2021 5:15 AM CDT Plan of Treatment Not on file Advance Directives * Full Code (Latest Code Status on File) Date Activated Date Inactivated Comments 02/07/2021 3:53 AM 02/07/2021 11:49 PM CPR-Full Emy tment: FULL ARREST: Attempt Resuscitation/CPR wit intubation and mechanical ventilation. PRE-ARREST: Use entire range of life support measures to stabilize the patient. Care Teams Room Designer Relationship Specialty Start Date End Date Provider, None [place] PCP - General 02/07/21
== END 2025-06-24 09:37 | disposition home or self-care (01) ==
PROVIDERS: Visit Provider Registered Nurse
DX: M25.561 Pain in right knee (principal)
CPT/HCPCS: 73560

== ENCOUNTER 2025-07-13 14:32 | Outpatient (CLI) | payer OTHER, SELFPAY ==
--- OUTSIDE RECORDS SUMMARY | 2025-06-03 15:00 | XMS_ITS ---
Author Organization [facility] Address [address] [place] [address] Phone [phone] Care Team Providers Care Motor And Generator Assembler Name Role Phone Lg Leung APRN Primary Care Provider REASON FOR VISIT labs Social History Sex Observation Social History Observation Description Sex Observation Male Sexual Orientation Social History Observation Description Sexual Orientation Bisexual Gender Identity Social History Observation Description Gender Identity Male Encounters Date Time Type Facility Location Provider Diagnosis 06/03/2025 03:00 PM Office Visit [address] [place] [address] Lg Leung Plan Of Treatment No Information Medical (General) History Medical History History ICD Code hypertension Surgical History Surgery Date(Month/Year) pins put in Left knee Progress Notes * Darryl ROMANO RDOB:1995 ([age] yo M)Acc No.[id number]:06/03/2025 UNLOCKED PROGRESS NOTE Patient: Nat RYAN Darryl Li Provider: Ameena Leung DNP, PMHNP- :1995 A ge:30 Y S ex:Male Date:06/03/2025 Address:[address] [place], [place] [id number] Subjective: * Chief Complaints: * 1 . Labs. * Screening: * * Medical History: Objective: * Vitals: Assessment: Plan: * Treatment: * * Electronic signature of Lance Leung , SOFTWARE TOOLS DEVELOPER, [id number] on 07/13/2025 at 07:20 PM RESOURCE MANAGEMENT SPECIALIST Sign off status: Pending * Provider: Ameena Leung DNP, PMHNP- Date: 1 Generated for [place] braden/Hilary/Arcadio on: 09/13/2024 07:20 PM RESOURCE MANAGEMENT SPECIALIST
--- NOTE | ~2025-07-13 | MR_ITS ---
EXAMINATION: MR knee RT wo con DATE: 07/13/2025 15:21 INDICATION: Pain and swelling TECHNIQUE: Magnetic resonance imaging (MRI) of the knee was performed without intravenous contrast. Sequences included axial PD-weighted FS FSE, coronal PD- weighted FSE and PD-weighted FS FSE, sagittal PD-weighted FSE, and sagittal T2- weighted FS FSE. COMPARISON: X-rays from June 24 FINDINGS: No fracture subluxation or dislocation. Chondral articulating margins appear intact. Small joint effusion present. Mildly complex tear involving the posterior horn of the lateral meniscus extending to the inferior surface and horizontally into the white zone. There is also mild edematous appearing changes in the subjacent margin of the medial tibial plateau. Moderately extensive edematous changes present in the deep portion of the medial head of the gastrocnemius muscle with edematous changes extending caudally to the lower most portion of the field of view. No discrete tear seen. The joint capsule in this location appears slightly thickened and irregular; there also may be mild meniscocapsular separation as seen on images 14 through 18 of series 5. The anterior horn of the medial meniscus appears intact. The lateral meniscus appears intact. Cruciate and collateral ligaments appear intact. The quadriceps and infrapatellar tendons appear normal. IMPRESSION: Somewhat complex appearing tear involving the posterior horn of the medial meniscus with possible meniscocapsular separation and injury to the joint capsule in this area; mild contusion to the medial tibial plateau also present. Moderately extensive strain or injury involving the medial head of the gastrocnemius, although no discrete tear is seen. Reviewed, dictated and finalized at location A. OPERATIVE NURSE IMPRESSION: Somewhat complex appearing tear involving the posterior horn of th e medial meniscus with possible meniscocapsular separation and injury to the josef int capsule in this area; mild contusion to the medial tibial plateau also pres ent. Moderately extensive strain or injury involving the medial head of the gas trocnemius, although no discrete tear is seen.
--- OUTSIDE RECORDS SUMMARY | 2025-07-13 19:21 | XMS_ITS | Clinical Summary ---
Author Organization [facility] Address [address] [place] [address] Phone Care Team Providers Care Complaint Analyst Name Role Phone Provider, None Primary Care [...] measures to stabilize the patient. Care Teams Complaint Analyst Relationship Specialty Start Date End Date Provider, None [place] PCP - General 02/07/21
--- OUTSIDE RECORDS SUMMARY | 2025-07-13 19:21 | XMS_ITS | Clinical Summary ---
Author Organization [facility] Address [address] [place] [address] Care Team Providers Care Senior Python Developer Name Role Phone Mireya Keene TALENT ACQUISITION RELATIONSHIP MANAGER-ROTARY SHEAR WORKER HELPER Primary Care Provide r Source Comments [facility],non-owned Affiliates and Associated Physician Practices is amultiple site organization consisting of ambulatory clinics and hospital sitesin [place], [place], [place] and [place]. This disclosure is being madepursuant to the Care Everywhere program and may not contain all information available regarding this patient. Last updated 18.[facility] Allergies No known active allergies Medications * [...] 11:49 PM 01/01/2022 2:07 PM Care Teams Senior Python Developer Relationship Specialty Start Date End Date Mireya Keene APRN-CNP [address] [place] [address] PCP - General Nurse Practitioner 12/02/21
--- OUTSIDE RECORDS SUMMARY | 2025-07-13 19:21 | XMS_ITS | Patient Health Record ---
Author Organization [facility] Address [address] [place] [address] Phone [phone] Care Team Providers Care Tier Over Name Role Phone Lg Leung APRN Primary Care Provider [phone] Chip Craig Unavailable [phone] Grady Villanueva Unavailable [phone] Carito Johnson Unavailable [phone] Allergies No Known Allergies Results Component Value Reference Range Flag Notes 14 Panel Urine Drug Screen Order date: 06/21/2025 Reviewed date:06/21/2025 03:30:30 PM Interpretation: Performing Lab: Notes/Report: THC pos RAYRAY neg MOP (OPI) neg AMP neg MET neg BAR neg BZO pos MDMA neg MTD neg OXY neg PCP neg BUP neg TCA neg FTY neg Chlamydia trachomatis,Neisse jorge gonorrhoeae, and Trichomonas vaginalis, TEMO ([id number]) Order date: 06/21/2025 Reviewed date:06/27/2025 08:05:42 AM Interpretation: Performing Lab:[facility], [address] [place] [address] [facility], Phone - [phone], Director - Natalie Notes/Report: Chlamydia by TEMO Negative Negative Gonococcus by TEMO Negative Negative Trich vag by TEMO Negative Negative Rapid Plasma Reagin (RPR) Te st With Reflex to Quantitative RPR and Confirmatory Treponema pallidum Antibodies Order date: 06/21/2025 Reviewed date:06/27/2025 08:05:42 AM Interpretation: Performing Lab:[facility] [place], Phone - [phone], Director - Natalie Notes/Report: RPR Non Reactive Non Reactive HIV Screen *HIV 1, 2 Ab, p24 Ag ([id number]) Order date: 06/21/2025 Reviewed date:06/27/2025 08:05:42 AM Interpretation: Performing Lab:[facility] [place], Phone - [phone], Director - Natalie Notes/Report: HIV Ab/p24 Ag Screen Non Reactive Non Reactive HIV-1/HIV-2 antibodies and HIV-1 p24 antigen were NOT detected. There is no laboratory evidence of HIV infection. HIV Negative QuantiFERON-TB Gold Plus ([id number]) Order date: 06/21/2025 Reviewed date:06/27/2025 08:05:42 AM Interpretation: Performing Lab:[facility] [place], Phone - [phone], Director - Natalie Notes/Report: QuantiFERON Incubation Incubation [...] Nil Value 0.02 QuantiFERON Mitogen Value >10.00 Breathalyzer Order date: 06/21/2025 Reviewed date:06/21/2025 03:30:30 PM Interpretation: Performing Lab: Notes/Report: VARINDER 0.000 Jugtown (Eskalith(R)), Serum Order date: 06/08/2025 Reviewed date:06/15/2025 01:43:41 PM Interpretation: Performing Lab:[address], Phone - [phone], Director - [facility] Notes/Report: Jugtown (Eskalith(R)), Serum 0.5 0.5-1.2 mmol/L A concentration of 0.5-0.8 mmol/L is advised for long-term use; concentrations of up to 1.2 mmol/L may be necessary during acute treatment. Detection Limit = 0.1 <0.1 indicates None Detected Vitamin B12 and Folate Order date: 06/08/2025 Reviewed date:06/15/2025 01:43:41 PM Interpretation: Performing Lab:[address], Phone - [phone], Director - [facility] Notes/Report: Vitamin B12 380 418-6368 pg/mL Folate (Folic Acid), Serum 3.2 >3.0 ng/mL A serum folate concentration of less than 3.1 ng/mL is considered to represent clinical deficiency. Iron and TIBC* Order date: 06/08/2025 Reviewed date:06/15/2025 01:43:41 PM Interpretation: Performing Lab:[address], Phone - [phone], Director - [facility] Notes/Report: Iron Bind.Cap.(TIBC) 302 250-450 ug/dL UIBC 223 111-343 ug/dL Iron 79 38-169 ug/dL Iron Saturation 26 15-55 % TSH Rfx on Abnormal to Free T4 Order date: 06/08/2025 Reviewed date:06/15/2025 01:43:41 PM Interpretation: Performing Lab:[address], Phone - [phone], Director - [facility] Notes/Report: TSH 5.670 0.450-4.500 uIU/mL H T4,Free (Direct) 0.89 0.82-1.77 ng/dL Hepatitis C Virus Antibody w /Rflx to Quantitative Real-time PCR ([id number]) Order date: 06/08/2025 Reviewed date:06/15/2025 01:43:41 PM Interpretation: Performing Lab:[facility] [address] [place] [address], Phone - [phone], Director - [facility] Notes/Report: HCV Ab Non Reactive Non Reactive Interpretation: Not infected with HCV unless early or acute infection is suspected (which may be delayed in an immunocompromised individual), or other evidence exists to indicate HCV infection. Hepatitis B Surface Antigen (HBsAg Screen) Order date: 06/08/2025 Reviewed date:06/15/2025 01:43:41 PM Interpretation: Performing Lab:[facility] [address] [place], [place] [address], Phone - [phone], Director - [facility] Notes/Report: HBsAg Screen Negative Negative Rapid Plasma Reagin (RPR) Te st With Reflex to Quantitative RPR and Confirmatory Treponema pallidum Antibodies Order date: 06/08/2025 Reviewed date:06/15/2025 01:43:41 PM Interpretation: Performing Lab:[facility] [address] [place], [place] [address], Phone - [phone], Director - [facility] Notes/Report: RPR Non Reactive Non Reactive HIV Screen *HIV 1, 2 Ab, p24 Ag ([id number]) Order date: 06/08/2025 Reviewed date:06/15/2025 01:43:41 PM Interpretation: Performing Lab:[facility] [address] [place] [address], Phone - [phone], Director - [facility] Notes/Report: HIV Ab/p24 Ag Screen Non Reactive Non Reactive HIV Negative HIV-1/HIV-2 antibodies and HIV-1 p24 antigen were NOT detected. There is no laboratory evidence of HIV infection. Lipid Panel* Order date: 06/08/2025 Reviewed date:06/15/2025 01:43:41 PM Interpretation: Performing Lab:[facility] [address] [place], [place] [address], Phone - [phone], Director - [facility] Notes/Report: Cholesterol, Total 185 100-199 mg/dL Triglycerides 78 0-149 mg/dL HDL Cholesterol 55 >39 mg/dL VLDL Cholesterol Ry 14 5-40 mg/dL LDL Chol Calc ([facility]) 116 0-99 mg/dL H Hemoglobin A1c* Order date: 06/08/2025 Reviewed date:06/15/2025 01:43:41 PM Interpretation: Performing Lab:[facility] [address] [place] [address], Phone - [phone], Director - [facility] Notes/Report: Hemoglobin A1c 5.2 4.8-5.6 % . Prediabetes: 5.7 - 6.4 Diabetes: >6.4 Glycemic control for adults with diabetes: <7.0 Chlamydia/Gonococcus/Mycopla sma genitalium, TEMO, Urine Order date: 06/08/2025 Reviewed date:06/15/2025 01:43:41 PM Interpretation: Performing Lab:[facility] [address], Phone - [phone], Director - [facility] Notes/Report: Mycoplasma genitalium TEMO Negative Negative Chlamydia trachomatis, TEMO Negative Negative Neisseria gonorrhoeae, TEMO Negative Negative UA/M w/rflx Culture, Routine Order date: 06/08/2025 Reviewed date:06/15/2025 01:43:41 PM Interpretation: Performing Lab:[facility] [address], Phone - [phone], Director - [facility] Notes/Report: Specific [place] 1.020 1.005-1.030 pH 7.0 5.0-7.5 Urine-Color Yellow Yellow Appearance Clear Clear WBC Esterase Negative Negative Protein Negative Negative/Trace Glucose Negative Negative Ketones Negative Negative Occult Blood Negative Negative Bilirubin Negative Negative Urobilinogen,Semi-Qn 0.2 0.2-1.0 mg/dL Nitrite, Urine Negative Negative Microscopic Examination Microscopic foll ows if indicated. Microscopic Examination See below: Microscopic was indicated and was performed. Urinalysis Reflex This sp ecimen will not reflex to a Urine Culture. WBC None seen 0 - 5 /hpf RBC 0-2 0 - 2 /hpf Epithelial Cells (non renal) None seen 0 - 10 /hpf Casts None seen None seen /lpf Bacteria None seen None seen/Few CBC With Differential/Platel et* Order date: 06/08/2025 Reviewed date:06/15/2025 01:43:41 PM Interpretation: Performing Lab:[facility] [address], Phone - [phone], Director - [facility] Notes/Report: WBC 9.5 3.4-10.8 [...] 0.1-0.9 x10E3/uL Eos (Absolute) 0.5 0.0-0.4 x10E3/uL H Baso (Absolute) 0.1 0.0-0.2 x10E3/uL Immature Granulocytes 1 Not Estab. % Immature Grans (Abs) 0.1 0.0-0.1 x10E3/uL CMP 14 Comprehensive Metabol ic Panel* Order date: 06/08/2025 Reviewed date:06/15/2025 01:43:41 PM Interpretation: Performing Lab:[facility], [address] [facility], Phone - [phone], Director - [facility] Notes/Report: Glucose 85 70-99 [...] 47-123 IU/L AST (SGOT) 53 0-40 IU/L H ALT (SGPT) 61 0-44 IU/L H Reason For Referral Referral Date 06/08/2025 Referral Status Open Reason Evaluate for aminata fundoplication, [facility] preferred Diagnosis 1 Esophagitis (K20.90) Referral Organization [facility], [facility] Referring Provider First Name Chip Referring Provider Last Name Craig Referring Provider Speciality Internal M edicine Referred Provider Specialty General Surg nuvia Referral Priority Routine Medications Medication SIG (Take, Route, Frequency, Duration) Notes Start Date End Date Diagnosis (ICD Code) Status Naproxen 375 MG Tablet 1 tablet with food or milk as needed Orally every 12 hrs; Duration: 30 days 06/24/2025 Knee pain, right (ICD_10 - M25.561) Active Acetaminophen 500 MG Tablet two tablets as needed for pain (maximum of 6 tablets in 24 hours) Orally every 6 hrs 06/08/2025 Adult general medical examination (ICD_10 - Z00.00) Active Chlorhexidine Gluconate 0.12 % Solution 15 mL swish for 30 seconds, then spit. Do not swallow. Mouth/Throat Twice a day; Duration: 30 day(s) 06/21/2025 Poor dental hygiene (ICD_10 - Z91.89) Active Pantoprazole Sodium 40 MG Tablet Delayed Release 1 tablet 1/2 to 1 hour before morning meal Orally twice a day 06/08/2025 Adult general medical examination (ICD_10 - Z00.00) Active Losartan Potassium-HCTZ 100-25 MG Tablet 1 tablet Orally Once a day Adult general medical examination (ICD_10 - Z00.00) Active diazePAM 5 MG Tablet 1/2 - 1 tablet as needed for panic attacks or severe anxiety Orally Up to twice a day; Duration: 14 days 05/30/2025 VILMA (generalized anxiety disorder) (ICD_10 - F41.1) Active Melatonin 5 MG Tablet 1 tablet at bedtime as needed Orally Once a day; Duration: 30 days 06/21/2025 Adult general medical examination (ICD_10 - Z00.00) Active Amoxicillin 500 MG Capsule 1 capsule Orally 3 times a day; Duration: 7 days 06/08/2025 Dental infectio n (ICD_10 - K04.7) Active hydrOXYzine Pamoate 25 MG Capsule 1-2 capsules Orally 3 times a day; Duration: 30 days As needed for anxiety or insomnia 06/21/2025 VILMA (generalized anxiety disorder) (ICD_10 - F41.1) Active Multi Vitamin - Tablet 1 tablet Orally Once a day; Duration: 30 days 06/21/2025 Adult general medical examination (ICD_10 - Z00.00) Active Gabapentin 100 MG Capsule 1 capsule Orally 4 times a day; Duration: 30 days As needed for anxiety 06/28/2025 VILMA (generalized anxiety disorder) (ICD_10 - F41.1) Active [place]ugtown Carbonate ER 300 MG Tablet Extended Release 2 tablets at bedtime Orally Once a day; Duration: 30 days 04/26/2025 Borderline personality disorder (ICD_10 - F60.3) Active Venlafaxine HCl ER 75 MG Capsule Extended Release 24 Hour 1 capsule with food Orally Once a day; Duration: 30 days 03/24/2025 VILMA (generalized anxiety disorder) (ICD_10 - F41.1) Active buPROPion HCl ER (XL) 300 MG Tablet Extended Release 24 Hour 1 tablet in the morning Oral Once a day; Duration: 30 days Borderline personality disorder (ICD_10 - F60.3) Active Social History Tobacco Use: Social History Observation Description Date Details (start date - stop date) Never Smoker NA - NA Sex Observation Social History Observation Description Sex Observation Male Sexual Orientation Social History Observation Description Sexual Orientation Bisexual Gender Identity Social History Observation Description Gender Identity Male SDOH Assessments Date Tool Assessment Assessment LOINC Value Assessment Notes Goals Interventions 025 JANESSA (LOINC: 67063-5 ) Total Score: 8 Please specify Case Management Assessment First Visit Date Completed/Updated: 06/21/2025 What is your current housing situation? 17499-3 I have housing (RK97518-1) Are you worried about losing your housing? 75630-7 Yes (LA33-6) What is the highest level of school that you have finished? 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 Check all that apply 21957-5 Food (EY87100-3) Has lack of transportation k ept you from medical appointments, meetings, work or from getting things needed for daily living? 28273-8 Yes, it has kept me from medical appointments or from getting my medications (UD68755-7) Yes, it has kept me from non-medical meetings, appointments, work, or getting things needed for daily living (YR85711-2) How often do you see or talk to people that you care about and feel close to? (For example: talking to friends on the phone, visiting friends or family, going to uatsdin or club meetings) 76153-8 3 to 5 times a week (IT59353-8) How stressed are you? Stress is when someone feels tense, nervous, anxious, or can\t sleep at night because their mind is troubled 41176-2 Quite a bit (WF44897-1) In the past year have you sp ent more than 2 nights in a row in a prison, jail, fci center, or juvenile correctional facility? 09573-9 No (LA32-8) Do you feel physically and e motionally safe where you currently live? 56635-1 Yes (LA33-6) In the past year, have you b een afraid of your partner or ex-partner? 49534-0 No (LA32-8) Are you a refugee? I choose not to answer this question What country are you from? I choose not to answer this question PRAPARE Score: 8 Enabling Services Provided? Yes Social History Social Determinants Social Info Question Answer Notes PRAPARE Date Completed/Updated: 06/21/2025 What is your current housing situation? I have h ousing Are you worried about losing your housing? Yes What is the highest level of school that you have finished? 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 Stress is when someone feels tense, nervous, anxious, or can\t sleep at night because their mind is troubled Quite a bit In the past year have you sp ent more than 2 nights in a row in a prison, jail, fci center, or juvenile correctional facility? No Are [...] Please specify Case Management Assessment First Visit Miscellaneous Social Info Question Answer Notes Method of learning: Preferred method of learning: Reading,Discussion,Demonstrat ion,Hearing Primary Social History Social Info Question Answer Notes Living Arrangement Living Arrangement: Independent Florecita ing Is this a supportive environment? Yes Single Question Alcohol Screening How many times in the past year have you had (4 for women, or 5 for men) or more drinks in a day? 0 Employment Status Employment Status: Employed [employer] Illicit Substance Usage Illicit Substance Usage: Yes Substance Used: Cannabis Interested in quitting: No Alcohol Use Alcohol Use Frequency: Never Tobacco Use: Social Info Question Answer Notes Tobacco Control (Standard) Tobacco use: Nonsmoker Additional Findings: Tobacco non-user Ex-very he glo cigarette smoker (40+/day) Problems Problem Type SNOMED Code ICD Code Dates Problem Status W/U Status Risk Notes Problem Borderline personali ty disorder (47838405) Borderline personality disorder (F60.3) Added On: 5 Active confirmed Problem Hypertension (68266286) Hypertension (I10) Added On: 5 Active confirmed Problem Bipolar affective disorder (45450540) Bipolar affective disorder (F31.9) Added On: 5 Active confirmed Problem Generalized anxiety disorder (55952018) VILMA (generalized anxiety disorder) (F41.1) Added On: 5 Active confirmed Problem Overweight (376408062) Over weight (E66.3 ) Added On: 5 Active confirmed Problem Subclinical hypothyroidism (11532014) Subclinical hypothyroidism (E03.9) Added On: 5 Active confirmed Problem Mental health proble m (892641492) Mental health problem (F48.9) Added On: 5 Active confirmed Problem Physical examination , complete (36217340) Adult general medical examination (Z00.00) Added On: 5 Active confirmed Problem hypercholesterolemia (disorder) (86840558) Hypercholesteremia (E78.00) Added On: 5 Onset Date: 2024 Active confirmed Problem Extrapyramidal movements (143419849) 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) Added On: 5 Active confirmed Problem Internal derangement of right knee (17677476755012386) Internal derangement of right knee (M23.91) Added On: 5 Active confirmed Vital Signs Vital Sign Value Notes Appt Date Heart Rate 83 /min 06/27/2025 Temperature 97.9 degrees Fahrenheit 06/05 Respiratory Rate 18 /min 06/27/2025 Oximetry 99 % 06/27/2025 Blood pressure diastolic 84 mm Hg Height 73 in 06/27/2025 Blood pressure systolic 122 mm Hg 06/05 Weight 293.4 lbs 06/27/2025 BMI 38.71 kg/m2 06/27/2025 Encounters Date Time Type Facility Location Provider Diagnosis 025 02:00 PM Telehealth Office Visit, New Pt., Level 5 (57244) [address] [place] [address] Lg Leung Bipolar affective disorder F31.9 and VILMA (generalized anxiety disorder) F41.1 025 03:20 PM Office Visit, Est Pt., Level 4 (86643) [address] [place] [address] Lg Leung Bipolar affective disorder F31.9 ; VILMA (generalized anxiety disorder) F41.1 and Over weight E66.3 025 11:00 AM Telehealth Office Visit, Est Pt., Level 4 (58428) [address] [address] Lg Leung Bipolar affective disorder F31.9 and VILMA (generalized anxiety disorder) F41.1 025 03:00 PM Telehealth Office Visit, Est Pt., Level 4 (18060) [address] [address] Lg Leung Bipolar affective disorder F31.9 ; VILMA (generalized anxiety disorder) F41.1 ; Extrapyramidal and movement disorder G25.9 ; Medication monitoring encounter Z51.81 and High risk heterosexual behavior Z72.51 025 01:00 PM Office Visit, Est Pt., Level 4 (82504) [address] [address] Chip Craig Esophagitis K20.90 ; Urinary frequency R35.0 ; Hypertension I10 ; Over weight E66.3 ; Screening for diabetes mellitus Z13.1 ; Periodontal disease K05.6 ; Dental infection K04.7 ; Lipid screening Z13.220 ; Exposure to potential infection Z20.9 ; Fatigue R53.83 and Bipolar affective disorder F31.9 025 09:00 AM Office Visit, Est Pt., Level 4 (55867) [facility] [address] [place] [address] Grady Villanueva Adult general medical examination Z00.00 ; Hypertension I10 ; Over weight E66.3 ; Poor dental hygiene Z91.89 ; Unprotected sex Z72.51 and Knee pain, right M25.561 025 09:40 AM Office Visit [facility] [address] [place] [address] Carito Alex Over weight E66.3 and Mental health problem F48.9 025 08:40 AM Office Visit, Est Pt., Level 3 (60569) [facility] [address] [place] [address] Grady Villanueva Over weight E66.3 and Knee pain, right M25.561 025 11:20 AM Office Visit, Est Pt., Level 3 (13530) [facility] [address] [place] [address] Chip Craig Over weight E66.3 ; Internal derangement of right knee M23.91 ; Abnormal liver enzymes R74.8 ; Hypercholesteremia E78.00 and Subclinical hypothyroidism E03.9 025 08:40 AM Telehealth Office Visit, Est Pt., Level 4 (05493) [address] [address] Lg Leung VILMA (generalized anxiety disorder) F41.1 ; Borderline personality disorder F60.3 ; Adult general medical examination Z00.00 and Bipolar affective disorder F31.9 025 10:20 AM Telehealth Office Visit, Est Pt., Level 3 (41005) [address] [place] [address] Lg Leung Borderline personality disorder F60.3 and VILMA (generalized anxiety disorder) F41.1 025 11:28 AM Telephone Encounter [address] [address] Lg Leung Bipolar affective disorder F31.9 025 09:43 AM Telephone Encounter [address] [place] [address] Lg Leung 025 09:41 AM Telephone Encounter [address] [place] [address] Lg Leung 025 09:44 AM Telephone Encounter [address] [place] [address] Lg Leung Bipolar affective disorder F31.9 and VILMA (generalized anxiety disorder) F41.1 025 01:37 PM Telephone Encounter [facility] [address] [place] [address] Chipgino Craig Dental infection K04.7 025 10:53 AM Telephone Encounter [address] [place] [address] Lg Madhu 025 08:20 AM Telephone Encounter [address] [place] [address] Chip Kiara Assessments Encounter Date Diagnosis (ICD Code) Assessment Notes Treatment Notes Section Notes 06/28/2025 Dental infection (ICD-10 - K04.7) 03/01/2025 VILMA (generalized anxiety disorder) (ICD-10 - [...] Caplyta choosen to limit metabolic risk burden. 06/08/2025 Urinary frequency (ICD-10 - R35.0) 06/21/2025 Over weight (ICD-10 - E66.3) 06/24/2025 Over weight (ICD-10 - E66.3) 06/27/2025 Over weight (ICD-10 - E66.3) 06/24/2025 Knee pain, right (ICD-10 - M25.561) Educated patient on needing x-ray before any other scans can be done for insurance purposes. 06/21/2025 Hypertension (ICD-10 - I10) 03/01/2025 Bipolar affective disorder (ICD-10 - F31.9) [...] to client's intolerance due to withdrawal symptoms. 05/23/2025 Bipolar affective disorder (ICD-10 - F31.9) Client requests full lab work as has not had comprehensive lab work in a long time and is overdue. Needs lithium level and related labs. Is interested in STD testing as well. Client plans on f/u with PCP in a few weeks. Given PCP will likely want specific lab work discussed him waiting and f/u with PCP about this. He is agreeable. Is agreeable to trial of benztropine for hand tremor. 05/30/2025 Bipolar affective disorder (ICD-10 - F31.9) 06/28/2025 Borderline personali ty disorder (ICD-10 - F60.3) Client states he is upset because he feels he has borderline personality disorder, not bipolar, and that no one is listening to him. Diagnostical criteria including Cote Screening completed and client rates very high for borderline (10/ on Cote). Discussed with client that he could still have comorbid bipolar (mom and sister dx bipolar). Client states no medication has ever helped him. That he cycles between ups and downs w/i minutes to hours, has unstable relationships. 7 suicide attempts in past (2 hospitalizations for this, 5 were unknown to others). Discussed the treatment options of borderline including DBT. Client to talk to his current therapist about this. DIscussed treatment plan changes accordingly including more streamlined medications. States he feels he started having shaking from Caplyta. He requests his buspar be stopped as he feels it is not working. Wants a prn medication to replace. C/o lack of focus and states I think I have ADHD that has never been dx as well. Given all of these issues, recommend discontinuing Caplyta and Buspar. Benztropine client is no longer taking - discontinued. To streamline medicines, discontinuing 37.5 mg venlafaxine. Recommend leaving [address] for migraine hx. Trial of gabapentin 100 mg QID for anxiety control if client agreeable. Increase in bupropion to 300 mg for depression/lack of focus if client agreeable. Recommend leaving lithium in place. 07/05/2025 Borderline personali ty disorder (ICD-10 - F60.3) Client overall with improvements in condition from last appt. Client felt helped by hydroxyzine while in CRU and requests a refill. No other changes to treatment plan. 04/26/2025 VILMA (generalized anxiety disorder) (ICD-10 - F41.1) Client is agreeable to trial of low dose lithium using as augmentor for depression and to see if more stabilizing for mood. Discussed how to use lower dose amitriptyline to taper off very slowly due to client's intolerance due to withdrawal symptoms. 05/23/2025 VILMA (generalized anxiety disorder) (ICD-10 - F41.1) Client requests full lab work as has not had comprehensive lab work in a long time and is overdue. Needs lithium level and related labs. Is interested in STD testing as well. Client plans on f/u with PCP in a few weeks. Given PCP will likely want specific lab work discussed him waiting and f/u with PCP about this. He is agreeable. Is agreeable to trial of benztropine for hand tremor. 05/30/2025 VILMA (generalized anxiety disorder) (ICD-10 - F41.1) 06/28/2025 VILMA (generalized anxiety disorder) (ICD-10 - F41.1) Client states he is upset because he feels he has borderline personality disorder, not bipolar, and that no one is listening to him. Diagnostical criteria including Cote Screening completed and client rates very high for borderline (10/10 on Cote). Discussed with client that he could still have comorbid bipolar (mom and sister dx bipolar). Client states no medication has ever helped him. That he cycles between ups and downs w/i minutes to hours, has unstable relationships. 7 suicide attempts in past (2 hospitalizations for this, 5 were unknown to others). Discussed the treatment options of borderline including DBT. Client to talk to his current therapist about this. DIscussed treatment plan changes accordingly including more streamlined medications. States he feels he started having shaking from Caplyta. He requests his buspar be stopped as he feels it is not working. Wants a prn medication to replace. C/o lack of focus and states I think I have ADHD that has never been dx as well. Given all of these issues, recommend discontinuing Caplyta and Buspar. Benztropine client is no longer taking - discontinued. To streamline medicines, discontinuing 37.5 mg venlafaxine. Recommend leaving [address] for migraine hx. Trial of gabapentin 100 mg QID for anxiety control if client agreeable. Increase in bupropion to 300 mg for depression/lack of focus if client agreeable. Recommend leaving lithium in place. 06/21/2025 Adult general medica l examination (ICD-10 - Z00.00) Admit to the [...] must be approved by nursing staff before self-administratio n by patients: Diphenhydramine 25 mg, 2 tablets [...] there is pus, a foul odor, increased pain/redness/swell ing, or if soaking through bandages. 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 Needs lithium level and related labs. Is interested in STD testing as well. Client plans on f/u with PCP in a few weeks. Given PCP will likely want specific lab work discussed him waiting and f/u with PCP about this. He is agreeable. Is agreeable to trial of benztropine for hand tremor. 06/28/2025 Adult general medica l examination (ICD-10 - Z00.00) Client states he is upset because he feels he has borderline personality disorder, not bipolar, and that no one is listening to him. Diagnostical criteria including Cote Screening completed and client rates very high for borderline (10/10 on Cote). Discussed with client that he could still have comorbid bipolar (mom and sister dx bipolar). Client states no medication has ever helped him. That he cycles between ups and downs w/i minutes to hours, has unstable relationships. 7 suicide attempts in past (2 hospitalizations for this, 5 were unknown to others). Discussed the treatment options of borderline including DBT. Client to talk to his current therapist about this. DIscussed treatment plan changes accordingly including more streamlined medications. States he feels he started having shaking from Caplyta. He requests his buspar be stopped as he feels it is not working. Wants a prn medication to replace. C/o lack of focus and states I think I have ADHD that has never been dx as well. Given all of these issues, recommend discontinuing Caplyta and Buspar. Benztropine client is no longer taking - discontinued. To streamline medicines, discontinuing 37.5 mg venlafaxine. Recommend leaving [address] for migraine hx. Trial of gabapentin 100 mg QID for anxiety control if client agreeable. Increase in bupropion to 300 mg for depression/lack of focus if client agreeable. Recommend leaving lithium in place. 07/05/2025 VILMA (generalized anxiety disorder) (ICD-10 - F41.1) Client overall with improvements in condition from last appt. Client felt helped by hydroxyzine while in CRU and requests a refill. No other changes to treatment plan. 06/08/2025 Hypertension (ICD-10 - I10) 06/27/2025 Abnormal liver enzym es (ICD-10 - R74.8) 03/24/2025 VILMA (generalized anxiety disorder) (ICD-10 - [...] side effect profile (hopeful ED will resolve). 06/21/2025 Over weight (ICD-10 - E66.3) 05/23/2025 Medication monitorin g encounter (ICD-10 - Z51.81) Client requests full lab work as has not had comprehensive lab work in a long time and is overdue. Needs lithium level and related labs. Is interested in STD testing as well. Client plans on f/u with PCP in a few weeks. Given PCP will likely want specific lab work discussed him waiting and f/u with PCP about this. He is agreeable. Is agreeable to trial of benztropine for hand tremor. 03/24/2025 Over weight (ICD-10 - E66.3) Client [...] side effect profile (hopeful ED will resolve). 06/08/2025 Over weight (ICD-10 - E66.3) 06/28/2025 Bipolar affective disorder (ICD-10 - F31.9) Client states he is upset because he feels he has borderline personality disorder, not bipolar, and that no one is listening to him. Diagnostical criteria including Cote Screening completed and client rates very high for borderline (10/10 on Cote). Discussed with client that he could still have comorbid bipolar (mom and sister dx bipolar). Client states no medication has ever helped him. That he cycles between ups and downs w/i minutes to hours, has unstable relationships. 7 suicide attempts in past (2 hospitalizations for this, 5 were unknown to others). Discussed the treatment options of borderline including DBT. Client to talk to his current therapist about this. DIscussed treatment plan changes accordingly including more streamlined medications. States he feels he started having shaking from Caplyta. He requests his buspar be stopped as he feels it is not working. Wants a prn medication to replace. C/o lack of focus and states I think I have ADHD that has never been dx as well. Given all of these issues, recommend discontinuing Caplyta and Buspar. Benztropine client is no longer taking - discontinued. To streamline medicines, discontinuing 37.5 mg venlafaxine. Recommend leaving [address] for migraine hx. Trial of gabapentin 100 mg QID for anxiety control if client agreeable. Increase in bupropion to 300 mg for depression/lack of focus if client agreeable. Recommend leaving lithium in place. 06/27/2025 Hypercholesteremia (ICD-10 - E78.00) 06/21/2025 Poor dental hygiene (ICD-10 - Z91.89) 06/21/2025 Unprotected sex (ICD-10 - Z72.51) 06/08/2025 Screening for diabet es mellitus (ICD-10 - Z13.1) 06/08/2025 Periodontal disease (ICD-10 - K05.6) 06/21/2025 Knee pain, right (ICD-10 - M25.561) 05/23/2025 High risk heterosexu al behavior (ICD-10 - Z72.51) Client requests full lab work as has not had comprehensive lab work in a long time and is overdue. Needs lithium level and related labs. Is interested in STD testing as well. Client plans on f/u with PCP in a few weeks. Given PCP will likely want specific lab work discussed him waiting and f/u with PCP about this. He is agreeable. Is agreeable to trial of benztropine for hand tremor. 06/27/2025 Subclinical hypothyroidism (ICD-10 - E03.9) 06/08/2025 Dental infection (ICD-10 - K04.7) 06/08/2025 Lipid screening (ICD-10 - Z13.220) 06/08/2025 Exposure to potentia l infection (ICD-10 - Z20.9) 06/08/2025 Fatigue (ICD-10 - R53.83) 06/08/2025 Bipolar affective disorder (ICD-10 - F31.9) 03/01/2025 Other Discussed sleep hygiene and caffeine intake with encouragement to limit electronic devices an hour before bed and to limit caffeine after 3:00pm. Exercise benefits for mood and health discussed. Psychoeducation regarding psychiatric illness provided. Client was educated about risks and benefits of medication, alternatives to medication, off label uses of medication, suicidal ideation with SSRIs, self-administratio n and compliance with medication along with how to safely store medication. Verbal informed consent obtained. Client agrees to return sooner if symptoms worsen or if suicidal or homicidal ideations occur. Client has the phone number to the 24-hour crisis line at [facility]. Questions addressed. Client verbalized understanding of all [...] uses of medication, suicidal ideation with SSRIs, self-administratio n and compliance with medication along with how to safely store medication. Verbal informed consent obtained. Client agrees to return sooner if symptoms worsen or if suicidal or homicidal ideations occur. Client has the phone number to the 24-hour crisis line at [facility]. Questions addressed. Client verbalized understanding of all [...] uses of medication, suicidal ideation with SSRIs, self-administratio n and compliance with medication along with how to safely store medication. Verbal informed consent obtained. Client agrees to return sooner if symptoms worsen or if suicidal or homicidal ideations occur. Client has the phone number to the 24-hour crisis line at [facility]. Questions addressed. Client verbalized understanding of all information and is agreeable to treatment plan. Client is agreeable to trial of low dose lithium using as augmentor for depression and to see if more stabilizing for mood. Discussed how to use lower dose amitriptyline to taper off very slowly due to client's intolerance due to withdrawal symptoms. 05/23/2025 Other Discussed sleep hygiene and caffeine intake with encouragement to limit electronic devices an hour before bed and to limit caffeine after 3:00pm. Exercise benefits for mood and health discussed. Psychoeducation regarding psychiatric illness provided. Client was educated about risks and benefits of medication, alternatives to medication, off label uses of medication, suicidal ideation with SSRIs, self-administratio n and compliance with medication along with how to safely store medication. Verbal informed consent obtained. Client agrees to return sooner if symptoms worsen or if suicidal or homicidal ideations occur. Client has the phone number to the 24-hour crisis line at [facility]. Questions addressed. Client verbalized understanding of all information and is agreeable to treatment plan. Client requests full lab work as has not had comprehensive lab work in a long time and is overdue. Needs lithium level and related labs. Is interested in STD testing as well. Client plans on f/u with PCP in a few weeks. Given PCP will likely want specific lab work discussed him waiting and f/u with PCP about this. He is agreeable. Is agreeable to trial of benztropine for hand tremor. 06/21/2025 Other Continue treatment as recommended by [facility] staff. Encouraged patient to obtain routine medical care with patient's own primary care provider or establish as a patient at [facility] if no current primary care provider. 06/21/2025 Other Clinician met w ith client to assess needs for residential services. Clinician gathered information regarding historical presentation of mental health and substance use symptoms including withdrawal, HIV Risk assessment, psychiatric hospitalization history and presenting concern. Clinician conducted PHQ9 and CSSRS assessments as well as social drivers of health screening for the purposes of identifying additional service needs. 06/28/2025 Other Discussed sleep hygiene and caffeine intake with encouragement to limit electronic devices an hour before bed and to limit caffeine after 3:00pm. Exercise benefits for mood and health discussed. Psychoeducation regarding psychiatric illness provided. Client was educated about risks and benefits of medication, alternatives to medication, off label uses of medication, suicidal ideation with SSRIs, self-administratio n and compliance with medication along with how to safely store medication. Verbal informed consent obtained. Client agrees to return sooner if symptoms worsen or if suicidal or homicidal ideations occur. Client has the phone number to the 24-hour crisis line at [facility]. Questions addressed. Client verbalized understanding of all information and is agreeable to treatment plan. Client states he is upset because he feels he has borderline personality disorder, not bipolar, and that no one is listening to him. Diagnostical criteria including Cote Screening completed and client rates very high for borderline (10/10 on Cote). Discussed with client that he could still have comorbid bipolar (mom and sister dx bipolar). Client states no medication has ever helped him. That he cycles between ups and downs w/i minutes to hours, has unstable relationships. 7 suicide attempts in past (2 hospitalizations for this, 5 were unknown to others). Discussed the treatment options of borderline including DBT. Client to talk to his current therapist about this. DIscussed treatment plan changes accordingly including more streamlined medications. States he feels he started having shaking from Caplyta. He requests his buspar be stopped as he feels it is not working. Wants a prn medication to replace. C/o lack of focus and states I think I have ADHD that has never been dx as well. Given all of these issues, recommend discontinuing Caplyta and Buspar. Benztropine client is no longer taking - discontinued. To streamline medicines, discontinuing 37.5 mg venlafaxine. Recommend leaving [address] for migraine hx. Trial of gabapentin 100 mg QID for anxiety control if client agreeable. Increase in bupropion to 300 mg for depression/lack of focus if client agreeable. Recommend leaving lithium in place. 07/05/2025 Other Discussed sleep hygiene and caffeine intake with encouragement to limit electronic devices an hour before bed and to limit caffeine after 3:00pm. Exercise benefits for mood and health discussed. Psychoeducation regarding psychiatric illness provided. Client was educated about risks and benefits of medication, alternatives to medication, off label uses of medication, suicidal ideation with SSRIs, self-administratio n and compliance with medication along with how to safely store medication. Verbal informed consent obtained. Client agrees to return sooner if symptoms worsen or if suicidal or homicidal ideations occur. Client has the phone number to the 24-hour crisis line at [facility]. Questions addressed. Client verbalized understanding of all information and is agreeable to treatment plan. Client overall with improvements in condition from last appt. Client felt helped by hydroxyzine while in CRU and requests a refill. No other changes to treatment plan. 06/28/2025 Other Learning About the Safe Use of Antibiotics material was discussed. Pt was educated on use of antibiotic medication including dosing, side effects, adverse effects and anticipated response. Pt was also educated on importance of completing full course of treatment as ordered. Patient voiced understanding of all. Plan Of Treatment Future Test Test Name Order Date Xray : Knee, right 2 views 06/21/2025 MRI : Knee, right 06/27/2025 C-Reactive Protein, Quant 09/27/2025 Lipid Panel* 09/27/2025 CMP 14 Comprehensive Metabolic Panel* TSH Rfx on Abnormal to Free T4 6 Insurance Providers Payer Name Payer Address Payer Phone Subscriber Number Group Number Insured Name Patient Relationship to Insured Coverage Start Date Coverage End Date [facility] Attn Claims Department [address] [place] [address] [phone] [id number] SadafDarryl Self - patient is the insured 5 [facility] Attn Claims Department [address] [place] [address] [phone] SadafDarryl Self - patient is the insured 5 Medical (General) History Medical History History ICD Code hypertension Surgical History Surgery Date(Month/Year) pins put in Left knee
--- OUTSIDE RECORDS SUMMARY | 2025-07-13 19:21 | XMS_ITS | Clinical Summary ---
Author Organization [facility] lin Address [address] [place] [address] Care Team Providers Care Manufacturing Maintenance Manager Name Role Phone Unavailable Primary Care Provider Unavailabl e Social History Tobacco Use Types Packs/Day Years Used Date Smoking Tobacco: Never Assessed Sex and Gender Information Value Date Recorded Sex Assigned at Not on file Legal Sex Male 7:53 AM EST Gender Identity Not on file Sexual Orientation Not on file Plan of Treatment Not on file Medical Devices Not on file
== END 2025-07-13 14:33 | disposition home or self-care (01) ==
PROVIDERS: PCP Internal Medicine; Visit Provider Internal Medicine
DX: M23.91 Unspecified internal derangement of right knee (principal); S83.221A Peripheral tear of medial meniscus, current injury, right knee, initial encounter; S83.241A Other tear of medial meniscus, current injury, right knee, initial encounter
CPT/HCPCS: 73721